=== PATIENT | female | born 1955 | race Caucasian/White ===

== ENCOUNTER → 2016-08-25 | Outpatient (CLI) | payer OTHER ==
--- NOTE | 2016-08-25 13:47 | DIAGNOSTIC IMAGING REPORT ---
RIGHT KNEE 4 VIEWS; LEFT KNEE 4 VIEWS CLINICAL HISTORY: Bilateral knee pain. FINDINGS: An AP standing view both knees, an AP standing flexed view of both knees, a sunrise view of both knees, with lateral views of the right and left knee are obtained. No prior studies are available for comparison at the time of dictation. The skeletal structures are osteopenic. No fracture is seen. Right knee: There is moderate tricompartmental degenerative joint space narrowing. This is greatest the medial and patellofemoral compartments. There are medial marginal osteophytes and small patellar enthesophytes. A calcified fabella is noted. No osteochondral defect is identified. There is no joint effusion. The overlying soft tissues are within normal limits. Left knee: There is moderate tricompartmental degenerative joint space narrowing. This is greatest the medial and patellofemoral compartments. There is mild degenerative beaking of the tibial spine. A calcified fabella is noted. No osteochondral defect is identified. There is no joint effusion. The overlying soft tissues are within normal limits. IMPRESSION: 1. No acute bony abnormality is seen in either knee. 2. Osteopenia and arthritic change as above. Electronically signed by: Isaias Luna M.D. 08/25/2016 1:45 PM Dictated Date/Time: 08/25/2016 1:42 PM
== END | disposition home or self-care (01) ==
LOC: C.LABBC 13:07
PROVIDERS: ATTEND Orthopaedic Surgery Sports Medicine
DX: M17.0 Bilateral primary osteoarthritis of knee (principal)

== ENCOUNTER → 2016-09-19 | Outpatient (CLI) | payer OTHER ==
--- NOTE | 2016-09-19 10:50 | DIAGNOSTIC IMAGING REPORT ---
RIGHT ANKLE 3 VIEWS, LEFT ANKLE 3 VIEWS HISTORY: BILATERAL ANKLE PAIN Right COMPARISON: None. FINDINGS: There is no fracture or dislocation. Soft tissues are unremarkable. No radiopaque foreign bodies. Cartilage spaces are maintained for age. IMPRESSION: No significant abnormality within the right or left ankle. Electronically signed by: Chet Page M.D. 09/19/2016 10:49 AM Dictated Date/Time: 09/19/2016 10:48 AM
== END | disposition home or self-care (01) ==
LOC: C.RAD 09:44
PROVIDERS: ATTEND Orthopaedic Surgery
DX: M25.571 Pain in right ankle and joints of right foot (principal); M25.572 Pain in left ankle and joints of left foot

== ENCOUNTER → 2016-09-26 | Outpatient (CLI) | payer OTHER ==
--- NOTE | 2016-09-26 11:48 | DIAGNOSTIC IMAGING REPORT ---
MRI LEFT KNEE NO CONTRAST CLINICAL HISTORY: LEFT KNEE PAIN COMPARISON STUDY: 08/25/2016 conventional radiographic study FINDINGS: Imaging was performed the sagittal, coronal, and axial planes. There is marrow edema involving the lateral femoral condyle. This is felt to be on a degenerative basis. The quadriceps and patellar tendons appear intact. Anterior and posterior cruciate ligaments appear intact. The lateral collateral ligament appears intact. There is edema surrounding the medial collateral ligament, possibly indicating a strain. The medial and lateral patellar retinacular structures appear intact. There is medial joint compartment chondrosis. There is medial extrusion of the medial meniscus. There is a complex tear involving the posterior horn the medial meniscus. IMPRESSION: 1. 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 Extrusion of the medial meniscus. Complex medial meniscal tear. Electronically signed by: Juan Carlos Michel M.D. 09/26/2016 11:46 AM Dictated Date/Time: 09/26/2016 11:41 AM
== END | disposition home or self-care (01) ==
LOC: C.MRI 10:36
PROVIDERS: ATTEND Orthopaedic Surgery
DX: M25.562 Pain in left knee (principal); M22.2X2 Patellofemoral disorders, left knee; M25.862 Other specified joint disorders, left knee; S83.242A Other tear of medial meniscus, current injury, left knee, initial encounter; X58.XXXA Exposure to other specified factors, initial encounter

== ENCOUNTER → 2016-10-09 | Outpatient (CLI) | payer OTHER ==
--- NOTE | 2016-10-09 16:09 | DIAGNOSTIC IMAGING REPORT ---
MRI LEFT ANKLE WITHOUT IV CONTRAST CLINICAL HISTORY: Left ankle pain. Clinical concern for osteochondral defect in the talus. COMPARISON STUDY: Radiographs of left ankle dated 09/19/2016. TECHNIQUE: MRI of the left ankle was performed utilizing various T1 and T2-weighted sequences in the axial, sagittal, and coronal planes. IV contrast was not administered for this examination. FINDINGS: Normal marrow signal intensity is preserved throughout the visualized bony structures. There is no MRI evidence of fracture. No osteochondral defect is seen in the talar dome. The ankle mortise is intact. There is maintenance of normal fat within the sinus tarsi. The Achilles tendon is normal in morphology. There is mild fluid around the distal Achilles tendon and trace fluid in the retrocalcaneal bursa. There is mild nonspecific edema within Kager's fat pad, and the appearance suggests Achilles paratenonitis. There is a trace ankle joint effusion. The visualized plantar fascia is normal in appearance. The anterior, posterior, and peroneal tendons are intact. The anterior talofibular ligament is intact. There is age-indeterminant tearing of the anterior and posterior tibiofibular ligaments. The cutaneous marker and mild soft tissue edema overlie this site. The deltoid and spring ligaments are intact as visualized. The musculature of the hindfoot and ankle is normal in bulk and signal intensity. IMPRESSION: 1. No acute bony abnormality is seen. No osteochondral defect is identified in the talar dome as clinically queried. 2. There is age-indeterminant tearing of the anterior and posterior tibiofibular ligaments with mild overlying soft tissue edema. Correlate clinically for evidence of ankle sprain. 3. Findings suggest mild Achilles paratenonitis. 4. Small joint effusion. Dictated: 10/09/2016 3:17 PM Transcribed: 10/09/2016 4:08 PM [email or web address] Electronically signed by: Isaias Luna M.D. 10/09/2016 4:33 PM Dictated Date/Time: 10/09/2016 3:17 PM
== END | disposition home or self-care (01) ==
LOC: C.MRI 13:53
PROVIDERS: ATTEND Orthopaedic Surgery
DX: S93.492A Sprain of other ligament of left ankle, initial encounter (principal); X58.XXXA Exposure to other specified factors, initial encounter; M25.472 Effusion, left ankle

== ENCOUNTER → 2017-03-26 | Outpatient (CLI) | payer OTHER ==
--- NOTE | 2017-03-27 15:32 | MAMMOGRAPHY REPORT ---
BILATERAL DIGITAL SCREENING MAMMOGRAM TOMOSYNTHESIS WITH CAD: 03/26/2017 CLINICAL HISTORY: Routine screening. TECHNIQUE: Breast tomosynthesis in addition to standard 2D mammography was performed. Current study was also evaluated with a Computer Aided Detection (CAD) system. COMPARISON: Comparison is made to exams dated: 03/14/2016 mammogram, 03/13/2015 mammogram, 03/10/2014 m ammogram, 03/04/2013 mammogram, 04/02/2012 mammogram, and 03/28/2011 mammogram - [facility] er. BREAST COMPOSITION: There are scattered areas of fibroglandular density in both breasts. FINDINGS: No suspicious masses, calcifications, or areas of architectural distortion are noted in ei ther breast. There has been no significant interval change compared to prior exams. IMPRESSION: ACR BI-RADS CATEGORY 1: NEGATIVE There is no mammographic evidence of malignancy. A 1 year screening mammogram is recommended. The pa tient will receive written notification of the results. Approximately 10% of breast cancers are not detected with mammography. A negative mammographic report should not delay biopsy if a clinically suggestive mass is present. Kat Marinelli M.D. ah/:03/26/2017 16:40:29 Dice Spotter: Wendi STAHL(Rae)(M), [facility] letter sent: Normal 1/2 BI-RADS Code: ACR BI-RADS Category 1: Negative
== END | disposition home or self-care (01) ==
LOC: C.MAMM 15:00
PROVIDERS: ATTEND Obstetrics & Gynecology
DX: Z12.31 Encounter for screening mammogram for malignant neoplasm of breast (principal)

== ENCOUNTER → 2017-05-07 | Outpatient (CLI) | payer OTHER | END | disposition home or self-care (01) | LOC: C.PAPS 11:21 | PROVIDERS: ATTEND Obstetrics & Gynecology | DX: Z12.4 Encounter for screening for malignant neoplasm of cervix (principal) ==